=== PATIENT | female | born 1985 | race Caucasian/White ===

== ENCOUNTER 2021-10-24 06:33 | Outpatient (CLI) | payer OTHER, SELFPAY ==
[2021-10-24 07:26] LABS: Hematocrit 34.8 % (37.0-47.0); Hemoglobin 11.5 g/dL (12.0-15.0); Mean Corpuscular Hemoglobin 29.3 pg (26-34); Mean Corpuscular Volume 88.8 fl (80-100); Mean Platelet Volume 10.9 fl (7.4-10.4); Platelet Count Result 226 k/mm3 (150-375); Red Blood Count 3.92 M/mm3 (4.2-5.4); Red Cell Distribution Width 13.9 % (11.5-14.5); White Blood Count 6.6 K/mm3 (4.5-10.0)
[2021-10-29 13:58] LABS: Testosterone Free 2.2 pg/mL (0.1-6.4); Testosterone Total 16 ng/dL (2-45)
== END 2021-10-24 06:34 | disposition home or self-care (01) ==
PROVIDERS: PCP Family Medicine; Visit Provider Nurse Practitioner
DX: N92.0 Excessive and frequent menstruation with regular cycle (principal)
CPT/HCPCS: 36415; 84402; 84403; 84439; 84443; 85027

== ENCOUNTER 2022-01-20 15:38 | Outpatient (CLI) | payer OTHER, SELFPAY ==
[2022-01-20 15:59] LABS: Hematocrit 35.6 % (37.0-47.0); Hemoglobin 11.9 g/dL (12.0-15.0)
== END 2022-01-20 15:39 | disposition home or self-care (01) ==
LOC: ANHSURGERY 15:41
PROVIDERS: Anesthesiology; PCP Family Medicine; Visit Provider Obstetrics & Gynecology Gynecology
DX: D64.9 Anemia, unspecified (principal); Z01.818 Encounter for other preprocedural examination
CPT/HCPCS: 36415; 85014; 85018

== ENCOUNTER 2022-01-26 00:44 | Day surgery (SDC) | payer OTHER, SELFPAY ==
[2022-01-20 08:43] VITALS: BMI 36.0
--- NOTE | 2022-01-20 08:55 | PC.NURSE ---
Report to the Outpatient Waiting Room, entrance under the green pavilion located off [facility], at time 12:15 on date 01/26/22. OR Time: 2:15. Time changes happen often and if your time is changed the preop area will call you the afternoon before. - You and your visitor will be asked to self-screen and do not enter if you have any COVID symptoms. - Only one visitor and NO children visitors are allowed at this time. - The patient visitor is requested to leave or wait in car when not with patient due to restrictions. - A mask is required within the hospital. Patients may have clear liquids (water, carbonated beverages, clear teas, apple juice) until 3 hours prior to surgery (11:15) with a maximum of 20 ounces. - No food from midnight until time of surgery Take the following medications with a SIP of water the morning of surgery: NONE Medications to discontinue per physician: VITAMINS/SUPPLEMENTS Date to take last dose: 01/22/22 Please no make-up, nail nepalese, hairspray, perfume, deodorant, or body powder the day of surgery. No jewelry (including any body piercings) or valuables the day of surgery, leave them at home. Please take a shower or bath the night before, or the morning of, surgery with an antibacterial soap. Wear comfortable, loose fitting clothing. - Jewelry must be removed prior to entering the operating room. Rings and piercings that are not removed may be cut off. - The hospital will not accept responsibility for valuables. - Please leave all valuables, including medications, at home the day of surgery. If you are going home after surgery, a licensed explosives truck driver must drive you home. - NO public transportation without another adult. - We recommend that an adult stay with you for 24 hours following discharge. - We also recommend that you do not drive, make important decision, drink alcoholic beverages, or take any drugs that were not prescribed by your health care provider for at least 24 hours after your discharge time. Follow any additional instructions given to you from your surgeon. If you or anyone in your household have experienced Covid symptoms in the past week, please notify your surgeon or the nurse liaison at the phone number below for possible testing. Telephone instructions given to PT - ZEFERINO GRIMALDO and asked if any additional questions and then verbalized understanding. Patient advised to call surgeon office or pre surgery nurse liaison [phone] if any additional questions.
--- NOTE | 2022-01-26 08:44 | WPDHPUPDATE1 ---
History and Physical Update Update Date/Time: 01/26/22 08:44 History and Physical has been reviewed, including an updated exam of the patient. There are NO changes in the patient's condition. Risks, benefits, and alternatives have been discussed and questions answered. Patient agrees to proceed with procedure.
--- NOTE | 2022-01-26 08:45 | PM.HPGS ---
History of Present Illness History of Present Illness Consent: Risks, benefits, and alternatives have been discussed and questions answered. Patient agrees to proceed with procedure. Chief complaint: menorrhagia with anemia Narrative: Aimee Armas is a 36 year old female with heavy and long cycles. Patient states her cycles last approximately 7 days in on days 2 through 4 she was passing large clots and changing a super tampon every hour. She wears a pad for overflow during those times. Hemoglobin and hematocrit are 11.5 and 34.8. Pelvic ultrasound was normal and it was recommended to proceed with hysteroscopy D&C. With previous provider patient has tried an IUD, NuvaRing, and patch, without success. Risks of infection, bleeding, perforation, and possible pathology were reviewed. Patient voices understanding and agrees to proceed. Review of Systems Review of Systems: not repeated day of surgery; patient states no changes in status PMFSH Past Medical History Medical History (Updated 01/26/22 @ 08:49 by Janet Miller MD) (normal spontaneous vaginal delivery) X3 Surgical History Surgical History (Updated 01/26/22 @ 08:48 by Janet Miller MD) History of loop electrical excision procedure (LEEP) X2 in 2003 Social History Social History Smoking status: Never smoker Alcohol intake: current Alcohol use details: 3/MONTH Substance use: never Substance use type: does not use Living arrangements: with family Spiritual care concerns: No Meds Home Medications and Allergies Home Medications Medication Instructions Recorded Confirmed Type ferrous sulfate 325 mg (65 mg 325 mg PO DAILY 01/20/22 01/20/22 History iron) tablet (Iron (ferrous sulfate)) Allergies Allergy/AdvReac Type Severity Reaction Status Date / Time No Known Allergies Allergy Verified 01/20/22 08:42 Exam Narrative: Last office exam was normal as below Const: General: healthy appearing and alert Orientation/consciousness: patient oriented x3 Resp: Effort & Inspection: normal respiratory effort GI: GI Palp: Yes Soft to palpation, No Tenderness to palpation present (GI) and No Palpable mass present : External Female Exam: normal external appearance Speculum Exam - Vagina: normal appearance of the vagina and normal vaginal discharge Speculum Exam - Cervix: normal appearance of the cervix Bimanual exam- vagina & uterus: uterine size normal and consistency normal Bimanual Exam- Adnexa, other: normal adnexae and No adnexal tenderness Neuro: General: patient oriented x3 Assessment and Plan Assessment and plan (1) Menorrhagia: Code(s): N92.0 - Excessive and frequent menstruation with regular cycle Status: Acute Assessment and Plan: Plan is to proceed with D&C hysteroscopy
[2022-01-26 12:15] VITALS: BP 130/87; PULSE 72; RESP 16; TEMP 36.8; O2SAT 100; BMI 36.2
--- NOTE | 2022-01-26 13:10 | P.PNAN_ITS ---
Anes - Initial Pre Proc Eval Procedure: Operation Date: 01/26/22 14:15 Proposed Procedures p Hysteroscopy Dilation and Curettage - Janet Miller MD Date/Time: 01/26/22 13:10 Surgeon: Janet Miller MD Pre Op Diagnosis: menorrhagia with anemia Patient Data Age: 36 Gender: F Height: 1.7 m Weight: 104.33 kg Allergies Allergy/AdvReac Type Severity Reaction Status Date / Time No Known Allergies Allergy Verified 01/20/22 08:42 Home Medications Medication Instructions Recorded Confirmed Type ferrous sulfate 325 mg (65 mg 325 mg PO DAILY 01/20/22 01/20/22 History iron) tablet (Iron (ferrous sulfate)) Patient hx anesthesia problems: none Family hx anesthesia problems: none Results Review: All pre-operative results and documents have been reviewed as part of the pre- operative evaluation. [facility] Past Medical History Medical History (Updated 01/26/22 @ 13:11 by Zain Karimi MD) (normal spontaneous vaginal delivery) X3 Obesity Surgical History Surgical History History of loop electrical excision procedure (LEEP) X2 in 2003 Social History Social History Smoking status: Never smoker Alcohol intake: current Alcohol use details: 3/MONTH Substance use: never Substance use type: does not use Living arrangements: with family Spiritual care concerns: No Anes - Eval Final PreProcedure Day of Procedure 01/26/22 13:10 Patient weight: obese Heart: regular rate and rhythm Lungs: clear to auscultation Airway: Mallampati scale class II Last oral intake: >/= 8 hours ASA classification: II Emergent: no Anesthetic plan: proceed Anesthesia type and monitoring: general GIVS and standard monitoring Results Review: All pre-operative results and documents have been reviewed as part of the pre- operative evaluation. Informed Consent: The patient's anesthetic plan and its attendant risks and benefits were discussed with the patient/family/POA. Questions were solicited and answers provided to the satisfaction of the patient/family/POA.
[2022-01-26] MEDS: LACTATED RINGERS 1,000 ML 30 ML IV CONT (13:20)
[2022-01-26] MEDS: ACETAMINOPHEN 500 MG TABLET 1000 MG PO (13:27)
[2022-01-26] MEDS: LIDOCAINE HCL 1% PF 30 ML VIAL 10 ML INFILTRATE (13:58)
[2022-01-26 14:23] VITALS: BP 118/73; PULSE 62; RESP 14; O2SAT 93
--- NOTE | 2022-01-26 14:24 | P.OP_ITS ---
Procedure Note - Detailed Date of Procedure 01/26/22 Pre-op Diagnosis menorrhagia with anemia Post-op Diagnosis Same Procedure Performed D&C hysteroscopy Surgeon Janet Miller MD Anesthesia MAC and Local Findings uterus sounds to 9cm and the endometrium was grossly thickened especially in the lower uterine segment. The upper fundus appears grossly normal Description of Procedure the patient is taken to the operating room and placed under anesthesia in the dorsal lithotomy position. She was prepped and draped in usual sterile fashion. [place] speculum was placed in the vagina and the cervix grasped on the anterior lip with a tenaculum. The uterus is sounded to 9cm. The cervix is serially dilated to an 8 Hegar. The diagnostic hysteroscope was placed with the above-stated findings. The hysteroscope was removed and the sharp curette used to curette the endometrium until a good uterine cry was noted in all areas. A large amount of material is obtained consistent with the visual appearance. All instruments were then removed. Good hemostasis at the tenaculum site is noted. Sponge, needle, and instrument counts are correct per the OR staff. Patient is awakened from anesthesia and taken to recovery in stable condition. Estimated Blood Loss 5 Drains No Packing No Pathology Yes ( Endometrial curettings) Complications No immediate complications Condition Stable
[2022-01-26 14:50] VITALS: BP 121/78; PULSE 55; RESP 14
[2022-01-26 15:25] VITALS: BP 118/77; PULSE 51; RESP 16
== END 2022-01-26 15:40 | disposition home or self-care (01) ==
PROVIDERS: PCP Family Medicine; Visit Provider Obstetrics & Gynecology Gynecology
PROC: 0U5B8ZZ Destruction of Endometrium, Via Natural or Artificial Opening Endoscopic (ICD-10-PCS; CPT 58563; principal; 2022-01-26 14:15)
DX: N92.0 Excessive and frequent menstruation with regular cycle (principal); D64.9 Anemia, unspecified; E66.9 Obesity, unspecified; Z68.36 Body mass index [BMI] 36.0-36.9, adult
CPT/HCPCS: 58558; 88305; A9270; J1100; J2250; J2405; J2704; J3010; J7030; J7120